=== PATIENT | female | born 1985 | race Caucasian/White ===

== ENCOUNTER 2019-08-14 13:45 | Emergency (ER) | payer OTHER, SELFPAY ==
[~2019-08-14] VITALS: Ht 162.6 cm; Wt 108.9 kg
[2019-08-14 13:46] VITALS: Ht 162.6 cm; Wt 108.9 kg
[2019-08-14 16:34] LABS: BASOPHIL % 0.3 % (0-2); PLATELET COUNT 256 x10^3mcL (130-400); RED CELL DISTRIBUTION WIDTH 12.9 % (11.5-14.5)
[2019-08-14 17:07] LABS: CALCIUM 8.4 mg/dL (8.5-10.1); CARBON DIOXIDE 27.2 mmol/L (21-32); CHLORIDE SERUM 104 mmol/L (98-107); CREATININE SERUM 0.8 mg/dL (0.6-1.0); GFR1 > 60 mL/min; GLUCOSE SERUM 128 mg/dL (74-106); POTASSIUM SERUM 3.4 mmol/L (3.5-5.1); SODIUM SERUM 141 mmol/L (136-145)
[2019-08-14 17:11] LABS: ALKALINE PHOSPHATASE 108 U/L (46-116); ALT/SGPT 72 U/L (14-59); AST/SGOT 46 U/L (15-37); BILIRUBIN TOTAL 0.4 mg/dL (0.20-1.00); TOTAL PROTEIN, SERUM 7.3 g/dL (6.4-8.2)
[2019-08-14 17:12] LABS: microscopic required? YES; urine erythrocyte 3+ (NEGATIVE)
[2019-08-14 19:45] VITALS: BP 141/71
== END 2019-08-14 19:45 | disposition home or self-care (01) ==
LOC: ED 13:45
PROVIDERS: Emergency Medicine
DX: J18.9 Pneumonia, unspecified organism (principal); Z20.828 Contact with and (suspected) exposure to other viral communicable diseases
CPT/HCPCS: J0696; J7030; J7060; Q0092